=== PATIENT | female | born 1990 | race Caucasian/White ===

== ENCOUNTER 2017-06-21 05:36 | Day surgery (SDC) | payer OTHER ==
[~2017-06-21] VITALS: Ht 165.1 cm; Wt 72.6 kg
[~2017-06-21 05:36] MED LIST: ACID REDUCER75 MG PO; ADVIL200 MG PO; CLARITIN10 M3 PO; ENDOCET 5-3251 EACH PO; IBUPROFEN800 MG PO; KLONOPIN0.5 M1 PO; MACROBID100 MG PO; NITROFURANTOIN100 MG PO; NOHOMEMEDS; PRENATAL TABLE1 EAC3 PO; PROMETHAZI6.25 MG/5 PO; PROZAC40 MG PO; PYRIDIUM200 MG PO; VITAMIN B-250 MG PO; WELLBUTRIN XL150 MG PO
[2017-06-21 06:56] VITALS: BP 113/63
[2017-06-21 15:50] VITALS: BP 114/59
[2017-06-21 20:10] VITALS: BP 111/61
[2017-06-21 23:30] VITALS: BP 121/68
[2017-06-22 03:40] VITALS: BP 108/64
[2017-06-22 06:59] LABS: HEMOGLOBIN 12.5 G/DL (11.9-15.5); MCH 29.3 PG (29.0-34.0); MCHC 32.9 G/DL (30.0-36.0); MCV 89.2 FL (83-99); PLATELET COUNT 209 K/uL (156-360); RBC DIS.WIDTH-CV 12.8 % (11.8-14.6); RED BLOOD COUNT 4.26 M/uL (3.80-5.20); WHITE BLOOD COUNT 8.2 K/uL (4.1-10.2)
[2017-06-22 07:19] VITALS: BP 107/54
[2017-06-22 07:25] LABS: CHLORIDE 109 MEQ/L (99-109); CREATININE 0.9 MG/DL (0.6-1.3); GFR ESTIMATE (CALCULATED) > 59 mL/min/; GLUCOSE 97 mg/dL (70-99); POTASSIUM 4.4 MEQ/L (3.7-5.4); SODIUM 139 MEQ/L (136-147); UREA NITROGEN (BUN) 8 mg/dL (9-23)
[2017-06-22] MEDS ORDERED: Tylenol Extra Streng PO (09:38)
[2017-06-22] MEDS ORDERED: IBUPROFEN400 MG PO (09:38)
[2017-06-22] MEDS ORDERED: TRAMADOL HCL50 MG PO (09:38)
== END 2017-06-22 12:08 | disposition home or self-care (01) ==
LOC: SDC 05:36 → 2SOUTH 10:00 → ENRESERV 10:13 → SDC 13:43 → 2EAST 15:37
PROVIDERS: Obstetrics & Gynecology
DX: N92.0 Excessive and frequent menstruation with regular cycle (principal); N72 Inflammatory disease of cervix uteri; Z98.51 Tubal ligation status; N83.201 Unspecified ovarian cyst, right side; N85.4 Malposition of uterus; F41.9 Anxiety disorder, unspecified; F32.9 Major depressive disorder, single episode, unspecified; F17.200 Nicotine dependence, unspecified, uncomplicated; Z82.49 Family history of ischemic heart disease and other diseases of the circulatory system; Z82.3 Family history of stroke; Z80.3 Family history of malignant neoplasm of breast; Z83.3 Family history of diabetes mellitus; Z83.49 Family history of other endocrine, nutritional and metabolic diseases
CPT/HCPCS: 80048; 84702; 85027; 86850; 86900; 86901; 88307; G0378; J0690; J1100; J1885; J2001; J2175; J2405; J2710; J2795; J3010; J3475; J3480; J7120